=== PATIENT | female | born 1985 | race Asian ===

== ENCOUNTER 2019-06-01 10:49 | Emergency (ER) | payer MEDICAID ==
[2019-06-01] MEDS ORDERED: hydrALAZINE 20 MG/1 ML INJ IV ONE (12:14)
--- NOTE | 2019-06-01 12:16 | Emergency Department Report ---
ED General Adult HPI - General Chief complaint: Chest Pain Stated complaint: CHEST PAIN Time Seen by Provider: 06/01/19 12:09 Source: family, EMS Mode of arrival: Ambulatory Limitations: No Limitations - History of Present Illness Initial comments: 34 yo AA female comes to ER with her mother. The pt has MR and schizo and is not complaining to us. The mother states the pt had cp because she has not been taking her bp meds for 2 days. Family was not giving them to her. She does have meds. PCP Rolando Pt goes to adult day care daily PMH schizo HTN DM MR rx metformin hctz clonidine psych meds PSH none -: Gradual Radiation: non-radiation Severity scale (0 -10): 7 Associated Symptoms: denies other symptoms ED Review of Systems ROS: Stated complaint: CHEST PAIN Other details as noted in HPI Comment: All other systems reviewed and negative ED Past Medical Hx - Past Medical History Previous Medical History?: Yes Hx Hypertension: Yes Hx Diabetes: Yes - Surgical History Past Surgical History?: No - Family History Family history: no significant - Social History Smoking Status: Never Smoker Substance Use Type: None ED Physical Exam - General Limitations: No Limitations General appearance: alert, in no apparent distress - Head Head exam: Present: atraumatic, normocephalic - Eye Eye exam: Present: normal appearance - ENT ENT exam: Present: mucous membranes moist - Neck Neck exam: Present: normal inspection - Respiratory Respiratory exam: Present: normal lung sounds bilaterally. Absent: respiratory distress - Cardiovascular Cardiovascular Exam: Present: regular rate, normal rhythm. Absent: systolic murmur, diastolic murmur, rubs, gallop - GI/Abdominal GI/Abdominal exam: Present: soft, normal bowel sounds - Extremities Exam Extremities exam: Present: normal inspection - Back Exam Back exam: Present: normal inspection - Neurological Exam Neurological exam: Present: alert, oriented X3 - Psychiatric Psychiatric exam: Present: normal affect, normal mood, other (MR) - Skin Skin exam: Present: warm, dry, intact, normal color. Absent: rash ED Course Vital Signs 06/01/19 06/01/19 06/01/19 11:22 11:26 11:30 Pulse Rate 94 H 90 95 H Respiratory 29 H 22 29 H Rate Blood Pressure 191/112 191/112 Blood Pressure [Right] O2 Sat by Pulse 98 98 99 Oximetry 06/01/19 06/01/1906/01/19 11:37 11:45 12:00 Pulse Rate 90 90 98 H Respiratory 22 21 14 Rate Blood Pressure 196/99 196/99 Blood Pressure 191/112 [Right] O2 Sat by Pulse 98 98 99 Oximetry 06/01/19 06/01/19 06/01/19 12:16 12:30 12:46 Pulse Rate 96 H 90 93 H Respiratory 13 11 L 25 H Rate Blood Pressure 196/99 166/92 166/92 Blood Pressure [Right] O2 Sat by Pulse 98 99 Oximetry 06/01/19 06/01/19 06/01/19 12:53 13:07 13:15 Pulse Rate 86 107 H 101 H Respiratory 18 14 Rate Blood Pressure 186/101 196/99 196/99 Blood Pressure [Right] O2 Sat by Pulse 100 100 Oximetry 06/01/19 13:31 Pulse Rate 103 H Respiratory 21 Rate Blood Pressure 108/78 Blood Pressure [Right] O2 Sat by Pulse 100 Oximetry ED Medical Decision Making - Lab Data Result diagrams: 06/01/19 12:22 06/01/19 12:22 - Radiology Data Radiology results: report reviewed, image reviewed - Medical Decision Making Lab Results 06/01/19 06/01/19 06/01/19 Range/Units 12:22 12:22 12:22 WBC 10.2 (4.5-11.0) K/mm3 RBC 4.55 (3.65-5.03) M/mm3 Hgb 13.2 (10.1-14.3) gm/dl Hct 39.3 (30.3-42.9) % MCV 86 (79-97) fl MCH 29 (28-32) pg MCHC 34 (30-34) % RDW 12.9 L (13.2-15.2) % Plt Count 243 (140-440) K/mm3 Lymph % (Auto) 30.0 (13.4-35.0) % [place] % (Auto) 5.1 (0.0-7.3) % Eos % (Auto) 1.3 (0.0-4.3) % Baso % (Auto) 0.4 (0.0-1.8) % Lymph # 3.1 (1.2-5.4) K/mm3 [place] # 0.5 (0.0-0.8) K/mm3 Eos # 0.1 (0.0-0.4) K/mm3 Baso # 0.0 (0.0-0.1) K/mm3 Seg Neutrophils % 63.2 (40.0-70.0) % Seg Neutrophils # 6.5 (1.8-7.7) K/mm3 D-Dimer < 135.00 (0-234) ng/mlDDU Sodium 138 (137-145) mmol/L Potassium 4.4 (3.6-5.0) mmol/L Chloride 98.1 (98-107) mmol/L Carbon Dioxide 27 (22-30) mmol/L Anion Gap 17 mmol/L BUN 11 (7-17) mg/dL Creatinine 0.8 (0.7-1.2) mg/dL Estimated GFR > 60 ml/min BUN/Creatinine Ratio 14 % Glucose 101 H (65-100) mg/dL Calcium 8.8 (8.4-10.2) mg/dL Troponin T (0.00-0.029) ng/mL HCG, Qual (Negative) 06/01/19 06/01/19 Range/Units 12:22 12:28 WBC (4.5-11.0) K/mm3 RBC (3.65-5.03) M/mm3 Hgb (10.1-14.3) gm/dl Hct (30.3-42.9) % MCV (79-97) fl MCH (28-32) pg MCHC (30-34) % RDW (13.2-15.2) % Plt Count (140-440) K/mm3 Lymph % (Auto) (13.4-35.0) % [place] % (Auto) (0.0-7.3) % Eos % (Auto) (0.0-4.3) % Baso % (Auto) (0.0-1.8) % Lymph # (1.2-5.4) K/mm3 [place] # (0.0-0.8) K/mm3 Eos # (0.0-0.4) K/mm3 Baso # (0.0-0.1) K/mm3 Seg Neutrophils % (40.0-70.0) % Seg Neutrophils # (1.8-7.7) K/mm3 D-Dimer (0-234) ng/mlDDU Sodium (137-145) mmol/L Potassium (3.6-5.0) mmol/L Chloride (98-107) mmol/L Carbon Dioxide (22-30) mmol/L Anion Gap mmol/L BUN (7-17) mg/dL Creatinine (0.7-1.2) mg/dL Estimated GFR ml/min BUN/Creatinine Ratio % Glucose (65-100) mg/dL Calcium (8.4-10.2) mg/dL Troponin T < 0.010 (0.00-0.029) ng/mL HCG, Qual Negative (Negative) Vital Signs 06/01/19 06/01/19 06/01/19 11:22 11:26 11:30 Pulse Rate 94 H 90 95 H Respiratory 29 H 22 29 H Rate Blood Pressure 191/112 191/112 Blood Pressure [Right] O2 Sat by Pulse 98 98 99 Oximetry 06/01/19 06/01/19 06/01/19 11:37 11:45 12:00 Pulse Rate 90 90 98 H Respiratory 22 21 14 Rate Blood Pressure 196/99 196/99 Blood Pressure 191/112 [Right] O2 Sat by Pulse 98 98 99 Oximetry 06/01/19 06/01/19 06/01/19 12:16 12:30 12:46 Pulse Rate 96 H 90 93 H Respiratory 13 11 L 25 H Rate Blood Pressure 196/99 166/92 166/92 Blood Pressure [Right] O2 Sat by Pulse 98 99 Oximetry 06/01/19 06/01/19 06/01/19 12:53 13:07 13:15 Pulse Rate 86 107 H 101 H Respiratory 18 14 Rate Blood Pressure 186/101 196/99 196/99 Blood Pressure [Right] O2 Sat by Pulse 100 100 Oximetry 06/01/19 13:31 Pulse Rate 103 H Respiratory 21 Rate Blood Pressure 108/78 Blood Pressure [Right] O2 Sat by Pulse 100 Oximetry HYDRAL IV X 1 BP NORMALIZED PT AMBULATORY AND TAKING PO XRAY NEG DDIMER NEG FAMILY HAS HX FOR PT DC HOME WITH FAMILY AND PCP FOLLOW UP. - Differential Diagnosis HTN NON ADHERENCE Critical care attestation.: If time is entered above; I have spent that time in minutes in the direct care of this critically ill patient, excluding procedure time. ED Disposition Clinical Impression: Hypertension, Medically noncompliant, History of mental disorder Disposition: DC-01 TO HOME OR SELFCARE Is pt being admited?: No Does the pt Need Aspirin: No Condition: Stable Instructions: Hypertension (ED) Additional Instructions: follow up with pcp this week for recheck resume home meds tonight per routine diet and activity per routine Referrals: [facility] [Outside] - 3-5 Days Time of Disposition: 13:44
[2019-06-01 12:36] LABS: Basophils % (Auto) 0.4 % (0.0-1.8); Eosinophils # (Auto) 0.1 K/mm3 (0.0-0.4); Eosinophils % (Auto) 1.3 % (0.0-4.3); Hematocrit 39.3 % (30.3-42.9); Hemoglobin 13.2 gm/dl (10.1-14.3); Lymphocytes # (Auto) 3.1 K/mm3 (1.2-5.4); Mean Corpuscular HGB Conc 34 % (30-34); Mean Corpuscular Volume 86 fl (79-97); Monocytes # (Auto) 0.5 K/mm3 (0.0-0.8); Monocytes % (Auto) 5.1 % (0.0-7.3); Platelet Count 243 K/mm3 (140-440); Red Blood Count 4.55 M/mm3 (3.65-5.03); Red Cell Distribution Width 12.9 % (13.2-15.2)
[2019-06-01 12:52] LABS: BUN/Creatinine Ratio 14; Blood Urea Nitrogen 11 mg/dL (7-17); Calcium 8.8 mg/dL (8.4-10.2); Hemolysis Index 7
--- NOTE | 2019-06-01 14:06 | XRay Report ---
CHEST 1 VIEW INDICATION: Chest Pain. COMPARISON: None. FINDINGS: Support devices: None. Heart: Within normal limits given body habitus and low lung volumes. Pulmonary vasculature: Indistinct. Lungs/Pleura: No acute air space or interstitial disease. Additional findings: None. IMPRESSION: 1. No CHF or pneumonia. 2. Limited examination due to body habitus and low lung volumes. Signer Name: Darian Nelson MD Signed: 06/01/2019 2:01 PM Workstation Name: [id number]
[2019-06-01 14:07] VITALS: BP 122/62
== END 2019-06-01 14:06 | disposition home or self-care (01) ==
LOC: ED 10:49
DX: I10 Essential (primary) hypertension (principal); E11.9 Type 2 diabetes mellitus without complications
CPT/HCPCS: 36415; 71045; 80048; 84484; 84703; 85025; 85379; 96374; 99284; J0360

== ENCOUNTER → 2020-11-01 | Outpatient (CLI) | payer MEDICAID | END | disposition home or self-care (01) | LOC: SLR 11:00 | PROVIDERS: ATTEND Internal Medicine | DX: G47.33 Obstructive sleep apnea (adult) (pediatric) (principal); R40.0 Somnolence; I10 Essential (primary) hypertension | CPT/HCPCS: 95811 ==